=== PATIENT | male | born 2000 | race Caucasian/White ===

== ENCOUNTER 2021-08-06 11:18 | Emergency (ER) | payer BC, SELFPAY ==
[2021-08-06 11:28] VITALS: BP 141/78; PULSE 74; RESP 16; TEMP 37; O2SAT 99
--- NOTE | 2021-08-06 11:28 | ED.LOWEXIN ---
HPI - Extremity Injury (Lower) General Chief Complaint: Extremity Injury, Lower Stated Complaint: left leg pain Time Seen by Provider: 08/06/21 11:28 Source: patient, family and RN notes reviewed Mode of arrival: ambulatory Limitations: no limitations History of Present Illness HPI Narrative: Socrates is a 21-year-old male patient who ambulated into the [facility] accompanied by a friend. Patient states he has a 2-day history of left knee swelling and pain on the right lateral knee. Patient states he he has not used any [id number] medications right right more ice to the area. Patient denies any injury to the area. Patient states years ago he had a dislocation to the left knee. Patient rates his pain 3 out of 10 when sitting at 7 out of 10 with movement. Patient does work for [employer]. Patient states he has no increase in the amount of walking or movement daily. MD complaint: knee injury Related Data Home Medications Medication Instructions Recorded Confirmed No Home Medications 08/06/21 08/06/21 Allergies Allergy/AdvReac Type Severity Reaction Status Date / Time No Known Allergies Allergy Unverified 06/02/19 17:16 Review of Systems Review of Systems: CONSTITUTIONAL: Denies body aches, fever, chills, or sweats. EYES: Denies visual changes, redness, or discharge. ENT: Denies rhinorrhea, congestion, sore throat, or otalgia. CARDIOVASCULAR: Denies chest pain, palpitations, or edema. RESPIRATORY: Denies cough or dyspnea. GASTROINTESTINAL: Denies abdominal pain, nausea, vomiting, or diarrhea. GENITOURINARY: Denies dysuria or hematuria. SKIN: Denies rash, itching, or wounds. MUSCULOSKELETAL: Denies back pain, + left knee pain. NEUROLOGIC: Denies headache, numbness, tingling, or weakness. PSYCH: Denies depression or anxiety. All systems reviewed & are unremarkable except as noted in HPI and below PMFSH Comments At time of signature, I have reviewed and agree with nursing past medical, surgical, social and family history unless otherwise noted. Please see nursing chart for further information. There is no relevant family history pertinent to the presenting complaint Exam Narrative: GENERAL: Well-appearing, well-nourished, and in no acute distress. HEAD: Normocephalic, atraumatic. EYES: EOMI. No redness or drainage. Conjunctivae normal. ENT: Mucous membranes pink and moist. Nares clear. No rhinorrhea. TMs normal bilaterally. Throat normal. Uvula midline. NECK: Normal AROM. Supple. No lymphadenopathy. CHEST: No respiratory distress. Clear to auscultation. HEART: Regular rate and rhythm. No murmur appreciated. Normal peripheral pulses. ABDOMEN: Soft, nontender, nondistended, normal active bowel sounds. MUSCULOSKELETAL: No bony tenderness. EXTREMITIES: Normal range of motion. Minimal edema to left knee, negative homans sign, negative posterior drawer test, distal sensation and movement intact, full ROM noted, pain only with palpation to left lateral knee SKIN: Warm, dry, no rash. Capillary refill normal. Normal skin turgor. NEURO: No focal deficits. Alert and oriented x3. Gait steady. PSYCH: Normal affect. No signs of depression or anxiety. Course Vital Signs Vital signs: Reviewed. Pt has been instructed to follow up with his PCP regarding his elevated blood pressure today. MDM - Extremity Injury (Lower) MDM Narrative Medical decision making narrative: Patient has a history of a left knee injury many years ago. Patient has minimal edema to the left knee. Patient has full range of motion. Patient has a negative posterior drawer test patient has normal distal sign station and movement. Patient denies any injury. Patient was informed to take ibuprofen 800 mg 3 times daily for the next 5 to 7 days. Ice and rest to the knee. Patient was informed to follow-up with his primary care physician in 7 to 10 days for continued complaints. Follow-up with orthopedic physician for continued complaints. Differential
[2021-08-06 11:36] VITALS: BP 141/78; PULSE 74; RESP 16; TEMP 37; O2SAT 99
== END 2021-08-06 11:46 | disposition home or self-care (01) ==
PROVIDERS: Emergency Provider Nurse Practitioner Family
DX: M25.562 Pain in left knee (principal)
CPT/HCPCS: 99212; G0463

== ENCOUNTER 2022-02-25 12:30 | Outpatient (RCR) | payer BC, SELFPAY ==
--- NOTE | 2022-01-26 15:23 | PTOPEVAL ---
Thank you for referring Socrates David to [facility].? The patient is scheduled to be seen for therapy? 2 x/week for 5 weeks. Please review, sign, date and return this plan of care ASUNCION. I agree with and certify that the following plan of care is medically necessary. Referring Physician Date Attending Provider: Ari Spaulding MD Diagnosis left knee pain Onset 09/23 Additional Evaluation Detail He is wearing a OTS knee brace. He states he needs the brace on steps He was working towards [employer] when he stopped due to knee pain. He does not perform cardio. Subjective Information He reports his pain started 09/23. Query Text:As Reported By Patient/ He works at [employer] but on medical leave due to knee pain. He needs to be able to lift 50#, move quickly and change from seated to walking task. He is currently performing carpentry and cleaning work currently. He had relief for a few days following the knee injections. Report sharp, throbbing pain of right knee/villalba region. He reports limitations with walking, steps, increased activities. Pain Assessment Left Knee(s) Reported Pain Level 4 Pain Description Sharp,Throbbing Pain Frequency Chronic,Continuous Lowest Pain Intensity 2 Greatest Pain Intensity 10 Pain Aggravating Factors Bending,Exercise/Activity, Lifting,Stair Climbing,Walking Lower Extremity Range of Motion Knee Range of Motion Left Knee Flexion Range of Motion - Active 96 Knee Extension Range of Motion - Active -8 Knee Range of Motion Limitations Pain Lower Extremity Muscle Strength Testing Hip Strength Left Hip Flexion Strength 3+ Fair + Hip Extension Strength 4- Good - Hip Abduction Strength 3+ Fair + Knee Strength Left Knee Flexion Strength 3+ Fair + Knee Extension Strength 3+ Fair + Ankle Strength Left Ankle Dorsiflexion Strength 3+ Fair + Muscle Length Testing Two-Joint Hip Flexor Shortened Muscles Short (L) Iliopsoas,Short (L) Rectus Femoris,Short (L) Ilial Tib Band Piriformis w/Hip Flexion >90 Degrees (L) WFL Left Hamstring Length -35
--- NOTE | 2022-02-16 14:51 | PCPTNOTE ---
Patient called & cancelled scheduled appointment this date due to being out of town.
--- NOTE | 2022-03-04 12:41 | PCPTNOTE ---
Patient called & cancelled scheduled appointment this date. Rescheduled for 03/09/22 at 11:00AM.
--- NOTE | 2022-03-09 11:26 | PCPTNOTE ---
Patient did not show up for scheduled appointment this date. Called and left a voicemail to call back if he would like to reschedule.
--- NOTE | 2022-03-18 09:41 | PCPTNOTE ---
PHYSICAL THERAPY DISCHARGE NOTE Attending Provider: Ari Spaulding MD Patient:Socrates David Date of :2000 Patient has not returned for any further treatments since 02/25/2022, therefore he will be discharged at this time. Patient?s initial visit was on 01/26/2022 and had a total of 9 visits. At his last attended visit he reported no pain and tolerated all exercises and activities well. Thank you for referring this patient to [facility]. Please review, sign, date and return this discharge summary ASUNCION. I have been updated about the patient's current status and I agree with discharge from the above service at this time. Referring Physician Date
== END 2022-03-18 14:10 | disposition home or self-care (01) ==
LOC: ANHPT 12:30
PROVIDERS: Visit Provider Orthopaedic Surgery
DX: M25.562 Pain in left knee (principal)
CPT/HCPCS: 97110; 97112; 97116; 97140; 97161; 97530

== ENCOUNTER 2024-09-04 13:44 | Emergency (ER) | payer BC, SELFPAY ==
--- NOTE | ~2024-09-04 | CT_ITS ---
EXAMINATION: CT abdomen pelvis w con DATE: 09/04/2024 16:09 INDICATION: Pelvis and abdominal pain. TECHNIQUE: Computed tomography (CT) of the abdomen and pelvis was performed with 100 mL Omnipaque 350 intravenous contrast. Automated exposure control and iterative reconstruction technique were employe d. The dose-length product was 371.13 mGy-cm. COMPARISON: None. FINDINGS: The visualized portions of lung bases are clear without pneumonia or pleural effusion. The heart size is normal. No pericardial effusion. The liver, gallbladder, spleen, pancreas, adrenal glan ds, and kidneys are normal. There are no dilated loops of bowel. The appendix is normal. There are no pathologically enlarged lymph nodes. There is no free intraperitoneal fluid. 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 There is mild lumbar spondylosis. IMPRESSION: 1. No etiology for the patient's symptoms. Reviewed, dictated and finalized at location A. IS DIRECTOR
--- NOTE | ~2024-09-04 | CT_ITS ---
EXAMINATION: CT brain wo con DATE: 09/04/2024 16:09 INDICATION: Vision and hearing changes. TECHNIQUE: Computed tomography (CT) of the head was performed without intravenous contrast. The mA wa s adjusted according to patient size. Iterative reconstruction technique was employed. The dose-lengt h product was 605.33 mGy-cm. COMPARISON: None FINDINGS: There is no intracranial hemorrhage, acute infarction, or abnormal intracranial mass lesion . The ventricles are normal in size. The orbits are normal. There is mucosal thickening in the parana queenie sinuses. The mastoid air cells are normal. IMPRESSION: 1. Normal brain. Reviewed, dictated and finalized at location A. NG MACHINE OPERATOR IMPRESSION: 1. Normal brain.
[2024-09-04 13:49] VITALS: BP 115/67; PULSE 92; RESP 18; TEMP 36.6; O2SAT 98
--- NOTE | 2024-09-04 14:05 | ED_ITS ---
HPI - General Adult General Chief complaint: Unspecified <Belen Saunders BASKET BOTTOM MACHINE OPERATOR - Last Filed: 09/04/24 14:08> Stated complaint: hearing and vision changes/chronic leg pain <Belen Saunders APRN - Last Filed: 09/04/24 14:08> Time Seen by Provider: 09/04/24 13:55 <Belen Saunders BASKET BOTTOM MACHINE OPERATOR - Last Filed: 09/04/24 14:08> Focused HPI: Patient is a 24-year-old male who presents to the ER with multiple medical complaints. He reports over the past couple of days he has had vision and hearing changes. He describes them as going in and out the difficulty focusing and unfocusing along with the inability to decipher what people are saying when they are speaking. Patient also endorses signific ant pelvis pain that radiates to his abdomen, which started three days ago. Patient reports he has a history of psychosis and mental health issues. He reports he has had multiple primary care providers in recent years but is trying to get his mental health stabilized. Patient endorses a constant state of panic. He denies chest pain, shortness of breath, fevers. GENERAL: Well-appearing, well-nourished, and in no acute distress. HEAD: Normocephalic, atraumatic. CHEST: Clear to auscultation. ?No respiratory distress. HEART: Regular rate and rhythm.? NEURO: ?Alert and oriented x3. Patient screened in triage and initial orders placed.? ?Additional care and disposition to be based upon?diagnostic testing and treatment. <Belen Saunders APRN - Last Filed: 09/04/24 14:08> Focused HPI: Patient is a 24-year-old male who presents to the ER with multiple medical complaints. He reports over the past couple of days he has had vision and hearing changes. He describes them as going in and out the difficulty focusing and unfocusing along with the inability to decipher what people are saying when they are speaking. Patient also endorses significant pelvis pain that radiates to his abdomen, which started three days ago. Patient reports he has a history of psychosis and mental health issues. He reports he has had multiple primary care providers in recent years but is trying to get his mental health stabilized. Patient endorses a constant state of panic. He denies chest pain, shortness of breath, fevers. GENERAL: Anxious, well-nourished HEAD: Normocephalic, atraumatic. CHEST: Clear to auscultation. ?No respiratory distress. HEART: Regular rate and rhythm.? NEURO: ?Alert and oriented x3. Patient screened in triage and initial orders placed.? ?Additional care and disposition to be based upon?diagnostic testing and treatment. <Karen Rojas PA-C - Last Filed: 09/04/24 17:57> Related Data Home medications: Home Medications Medication Instructions Recorded Confirmed aripiprazole 10 mg tablet 10 mg PO DAILY 03/05/22 03/05/22 divalproex 250 mg tablet,delayed mg PO 09/04/24 release <Belen Saunders APRN - Last Filed: 09/04/24 14:08> Allergies/adverse reactions: Allergies Allergy/AdvReac Type Severity Reaction Status Date / Time No Known Allergies Allergy Verified 03/05/22 10:50 <Belen Saunders APRN - Last Filed: 09/04/24 14:08> Review of Systems Review of Systems: CONSTITUTIONAL: Denies fever EYES: Reports visual changes CARDIOVASCULAR: Denies chest pain RESPIRATORY: Denies dyspnea. GASTROINTESTINAL: Reports abdominal pain, nausea. Denies vomiting, or diarrhea. GENITOURINARY: Denies dysuria or hematuria. MUSCULOSKELETAL: Reports joint pain, and myalgia. NEUROLOGIC: Denies headache, numbness, or weakness. PSYCHIATRIC: Reports anxiety <Karen Rojas PA-C - Last Filed: 09/04/24 17:57> All systems reviewed & are unremarkable except as noted in HPI and below <Karen Rojas PA-C - Last Filed: 09/04/24 17:57> PMFSH Past Medical History Medical History: Medical History Anxiety Headache <Belen Saunders APRN - Last Filed: 09/04/24 14:08> Family History Family History: Family History Other Alcoholism Asthma Depression Family history of alcoholism Family history of brain cancer Family history of rectal cancer Heart disease Hypertension Pulmonary arterial hypertension <Belenrhea Saunders, BASKET BOTTOM MACHINE OPERATOR - Last Filed: 09/04/24 14:08> Social History Social History: Social History Smoking status: Current some day smoker Tobacco type: cigars and e-cigarettes/vaping Alcohol intake: never Substance use: current Substance use type: marijuana Living arrangements: with roommate(s) Occupation/Education: occupation Additional occupation/education comments: [employer] <Belen DoverRashaun Saunders, BASKET BOTTOM MACHINE OPERATOR - Last Filed: 09/04/24 14:08> Exam Narrative: GENERAL: Well-appearing, well-nourished, and in no acute distress. HEAD: Normocephalic, atraumatic. EYES: PERRLA and EOMI. Visual acuity 20/25 bilateral ENT: Nares clear, no rhinorrhea or epistaxis. Mucous membranes moist. Oropharynx without tonsillar hypertrophy exudate or other lesions. Bilateral TMs pearly streeter non-bulging NECK: Supple. No adenopathy or masses. No carotid bruits or JVD CHEST: Clear to auscultation. No respiratory distress. No wheezes rales or rhonchi HEART: Regular rate and rhythm. No murmur heard. Normal peripheral pulses. ABDOMEN: Soft, nontender, nondistended, normal active bowel sounds. EXTREMITIES: Normal range of motion. No edema. Strength equal in bilateral upper and lower extremities SKIN: Warm, dry, no rash. NEURO: No focal deficits. Alert and oriented x3. Cranial nerves 2-12 grossly intact. Normal gait PSYCH: Anxious <Karen Rojas PA-C - Last Filed: 09/04/24 17:57> Course Course Emergency Course: patient updated on his workup and agrees with plan of care <Karen Rojas PA-C - Last Filed: 09/04/24 17:57> Vital Signs Vital signs: Vital Signs Temperature 97.9 F 09/04/24 13:49 Pulse Rate 92 09/04/24 13:49 Respiratory Rate 18 09/04/24 13:49 Blood Pressure 115/67 09/04/24 13:49 Pulse Oximetry 98 09/04/24 13:49 Oxygen Delivery Room Air 09/04/24 13:49 Temperature 97.9 F 09/04/24 13:49 Pulse Rate 92 09/04/24 13:49 Respiratory Rate 17 09/04/24 15:45 Blood Pressure 115/67 09/04/24 13:49 Pulse Oximetry 98 09/04/24 13:49 Oxygen Delivery Room Air 09/04/24 13:49 <Belen Saunders APRN - Last Filed: 09/04/24 14:08> Vital Signs Temperature 97.9 F 09/04/24 13:49 Pulse Rate 92 09/04/24 13:49 Respiratory Rate 18 09/04/24 13:49 Blood Pressure 115/67 09/04/24 13:49 Pulse Oximetry 98 09/04/24 13:49 Oxygen Delivery Room Air 09/04/24 13:49 Temperature 97.9 F 09/04/24 13:49 Pulse Rate 92 09/04/24 13:49 Respiratory Rate 17 09/04/24 15:45 Blood Pressure 115/67 09/04/24 13:49 Pulse Oximetry 98 09/04/24 13:49 Oxygen Delivery Room Air 09/04/24 13:49 <Karen Rojas PA-C - Last Filed: 09/04/24 17:57> Medical Decision Making MDM Narrative Medical decision making narrative: Patient presents to the ER for increasing anxiety. Reports history of mental health issues for which he follows with a nurse practitioner. Reports he has had issues with panic the last couple of weeks. Reporting several other various complaints including vision problems, pelvic pain, hearing issues. He is neurologically intact. His vitals are normal. CBC without leukocytosis. He moglobin is normal. Metabolic panel without concerning findings. Urine is normal. Ct brain without acute findings. CT abdomen/pelvis without acute findings. Patient was updated on his workup and agrees with plan of care. Will be given as needed anxiety medication for home and was instructed to have further follow up with his provider. He was given warnings to return to the ER <Karen Rojas PA-C - Last Filed: 09/04/24 17:57> Vital Signs Vital Signs: Vital Signs Temperature 97.9 F 09/04/24 13:49 Pulse Rate 92 09/04/24 13:49 Respiratory Rate 18 09/04/24 13:49 Blood Pressure 115/67 09/04/24 13:49 Pulse Oximetry 98 09/04/24 13:49 Oxygen Delivery Room Air 09/04/24 13:49 Temperature 97.9 F 09/04/24 13:49 Pulse Rate 92 09/04/24 13:49 Respiratory Rate 17 09/04/24 15:45 Blood Pressure 115/67 09/04/24 13:49 Pulse Oximetry 98 09/04/24 13:49 Oxygen Delivery Room Air 09/04/24 13:49 <Belen Saunders APRN - Last Filed: 09/04/24 14:08> Vital Signs Temperature 97.9 F 09/04/24 13:49 Pulse Rate 92 09/04/24 13:49 Respiratory Rate 18 09/04/24 13:49 Blood Pressure 115/67 09/04/24 13:49 Pulse Oximetry 98 09/04/24 13:49 Oxygen Delivery Room Air 09/04/24 13:49 Temperature 97.9 F 09/04/24 13:49 Pulse Rate 92 09/04/24 13:49 Respiratory Rate 17 09/04/24 15:45 Blood Pressure 115/67 09/04/24 13:49 Pulse Oximetry 98 09/04/24 13:49 Oxygen Delivery Room Air 09/04/24 13:49 <Karen Rojas PA-C - Last Filed: 09/04/24 17:57> Lab Data Lab results reviewed: Yes I reviewed the patient's lab results. <Karen Rojas PA-C - Last Filed: 09/04/24 17:57> Result diagrams: 09/04/24 15:10 09/04/24 15:10 <Belen Saunders APRN - Last Filed: 09/04/24 14:08> Labs: Lab Results 09/04/24 09/04/24 Range/Units 14:04 15:10 WBC 8.3 (4.5-10.0) K/mm3 RBC 5.52 (4.6-6.20) M/mm3 Hgb 16.3 (14.0-18.0) g/dL Hct 49.2 (42.0-52.0) % MCV 89.1 (80-100) fl MCH 29.5 (26-34) pg MCHC 33.1 (32-36) g/dl RDW 12.0 (11.5-14.5) % Plt Count 251 (150-375) k/mm3 MPV 10.3 (7.4-10.4) fl Immature Gran % (Auto) 0.2 (0-0.5) % Neut % (Auto) 64.7 (45.5-73.1) % Lymph % (Auto) 27.7 (18.3-44.2) % [place] % (Auto) 5.3 (2.6-8.5) % Eos % (Auto) 1.7 (0-4.4) % Baso % (Auto) 0.4 (0.2-1.2) % Lymph # (Auto) 2.31 (0.9-3.2) K/mm3 [place] # (Auto) 0.4 (0.1-0.6) K/mm3 Eos # (Auto) 0.1 (0-0.3) K/mm3 Baso # (Auto) 0.0 (0.0-0.1) K/mm3 Abs Immat Gran (auto) 0.02 (0.00-0.031) K/mm3 Absolute Neuts (auto) 5.4 (1.3-6.7) K/mm3 Absolute Nucleated RBC 0.000 (0.0-0.012) K/mm3 Nucleated RBC % 0.0 (0.0-0.2) % PT 13.9 (11.1-14.7) Seconds INR 1.0 APTT 40.8 H (22.3-36.8) Seconds Sodium 139 (137-145) mmol/L Potassium 4.5 (3.4-5.0) mmol/L Chloride 103 (98-107) mmol/L Carbon Dioxide 31 H (22-30) mmol/L Anion Gap 5 (4-12) mmol/L BUN 13 (9-20) mg/dL Creatinine 0.70 (0.7-1.3) mg/dL Estim Creat Clear Calc 124 ml/min Estimated GFR > 60 (59 - ) Glucose 90 (65-110) mg/dL Calcium 9.6 (8.4-10.2) mg/dL Total Bilirubin 0.6 (0.2-1.3) mg/dL AST 22 (17-59) U/L ALT 11 (6-50) U/L Alkaline Phosphatase 49 (38-126) U/L Troponin I < 0.012 (0.000-0.034) ng/mL Total Protein 8.0 (6.3-8.2) g/dL Albumin 5.0 (3.5-5.1) g/dL Lipase 89 (23-300) U/L Urine Color Yellow (Yellow) Urine Appearance Clear (Clear) Urine pH 6.0 (5.0-9.0) Ur Specific [place] 1.018 (1.001-1.035) Urine Protein Negative (Negative) mg/dL Urine Glucose (UA) Negative (Negative) mg/dL Urine Ketones Negative (Negative) mg/dL Ur Blood (Man) Negative (Negative) Urine Nitrate Negative (Negative) Urine Bilirubin Negative (Negative) Urine Urobilinogen 1.0 (<2.0) mg/dL Leukocyte Esterase Rfl Negative (Negative) LAZARO/UL <Belen Saunders, BASKET BOTTOM MACHINE OPERATOR - Last Filed: 09/04/24 14:08> Lab Results 09/04/24 09/04/24 Range/Units 14:04 15:10 WBC 8.3 (4.5-10.0) K/mm3 RBC 5.52 (4.6-6.20) M/mm3 Hgb 16.3 (14.0-18.0) g/dL Hct 49.2 (42.0-52.0) % MCV 89.1 (80-100) fl MCH 29.5 (26-34) pg MCHC 33.1 (32-36) g/dl RDW 12.0 (11.5-14.5) % Plt Count 251 (150-375) k/mm3 MPV 10.3 (7.4-10.4) fl Immature Gran % (Auto) 0.2 (0-0.5) % Neut % (Auto) 64.7 (45.5-73.1) % Lymph % (Auto) 27.7 (18.3-44.2) % [place] % (Auto) 5.3 (2.6-8.5) % Eos % (Auto) 1.7 (0-4.4) % Baso % (Auto) 0.4 (0.2-1.2) % Lymph # (Auto) 2.31 (0.9-3.2) K/mm3 [place] # (Auto) 0.4 (0.1-0.6) K/mm3 Eos # (Auto) 0.1 (0-0.3) K/mm3 Baso # (Auto) 0.0 (0.0-0.1) K/mm3 Abs Immat Gran (auto) 0.02 (0.00-0.031) K/mm3 Absolute Neuts (auto) 5.4 (1.3-6.7) K/mm3 Absolute Nucleated RBC 0.000 (0.0-0.012) K/mm3 Nucleated RBC % 0.0 (0.0-0.2) % PT 13.9 (11.1-14.7) Seconds INR 1.0 APTT 40.8 H (22.3-36.8) Seconds Sodium 139 (137-145) mmol/L Potassium 4.5 (3.4-5.0) mmol/L Chloride 103 (98-107) mmol/L Carbon Dioxide 31 H (22-30) mmol/L Anion Gap 5 (4-12) mmol/L BUN 13 (9-20) mg/dL Creatinine 0.70 (0.7-1.3) mg/dL Estim Creat Clear Calc 124 ml/min Estimated GFR > 60 (59 - ) Glucose 90 (65-110) mg/dL Calcium 9.6 (8.4-10.2) mg/dL Total Bilirubin 0.6 (0.2-1.3) mg/dL AST 22 (17-59) U/L ALT 11 (6-50) U/L Alkaline Phosphatase 49 (38-126) U/L Troponin I < 0.012 (0.000-0.034) ng/mL Total Protein 8.0 (6.3-8.2) g/dL Albumin 5.0 (3.5-5.1) g/dL Lipase 89 (23-300) U/L Urine Color Yellow (Yellow) Urine Appearance Clear (Clear) Urine pH 6.0 (5.0-9.0) Ur Specific [place] 1.018 (1.001-1.035) Urine Protein Negative (Negative) mg/dL Urine Glucose (UA) Negative (Negative) mg/dL Urine Ketones Negative (Negative) mg/dL Ur Blood (Man) Negative (Negative) Urine Nitrate Negative (Negative) Urine Bilirubin Negative (Negative) Urine Urobilinogen 1.0 (<2.0) mg/dL Leukocyte Esterase Rfl Negative (Negative) LAZARO/UL <Karen Rojas PA-C - Last Filed: 09/04/24 17:57> Imaging Data Radiologist's impression: ITS Impressions Head CT 09/04/24 16:10 IMPRESSION: 1. Normal brain. Abdomen/Pelvis CT 09/04/24 16:11 IMPRESSION: 1. No etiology for the patient's symptoms. <Karen Rojas PA-C - Last Filed: 09/04/24 17:57> ECG Data EKG #1: ECG completion date: 09/04/24 <CHAPIS Bhat Last Filed: 09/04/24 17:57> EKG Interpretation: normal rate, sinus rhythm, no ST changes and normal QT <Karen Rojas PA-C - Last Filed: 09/04/24 17:57> Critical Care Time Critical Care Time Critical Care Time: No <Karen Rojas PA-C - Last Filed: 09/04/24 17:57> Discharge Plan Discharge Clinical Impression: Anxiety, Pain pelvic <Belen Saunders APRN - Last Filed: 09/04/24 14:08> Patient Disposition: Home, Self-Care <Belen Saunders APRN - Last Filed: 09/04/24 14:08> Condition: Stable <Belen Saunders APRN - Last Filed: 09/04/24 14:08> Instructions: Abdominal Pain (ED), Anxiety (ED) <Belen Saunders APRN - Last Filed: 09/04/24 14:08> Additional Instructions: Return to the emergency department if you experience fever, chest pain, shortness of breath, abdominal pain with nausea and vomiting, sudden onset weakn ess, numbness, or any other symptoms that are concerning to you. You may take Lorazepam as needed for anxiety Follow up with your behavioral health specialist for further care <Belen Saunders APRN - Last Filed: 09/04/24 14:08> Prescriptions: New lorazepam 0.5 mg tablet 0.5 mg PO Q8H PRN (Reason: anxiety) Qty: 7 0RF No Action aripiprazole 10 mg tablet 10 mg PO DAILY divalproex 250 mg tablet,delayed release (DR/EC) PO <Belen Saunders APRN - Last Filed: 09/04/24 14:08> Follow-up/Referrals: Charles Olivas MD [Physician] - UNKNOWN,DOCTOR [Primary Care Provider] - <Belen Saunders APRN - Last Filed: 09/04/24 14:08>
[2024-09-04 15:22] LABS: Basophils Percent Auto 0.4 % (0.2-1.2); Eosinophils Absolute Auto 0.1 K/mm3 (0-0.3); Eosinophils Percent Auto 1.7 % (0-4.4); Hematocrit 49.2 % (42.0-52.0); Hemoglobin 16.3 g/dL (14.0-18.0); Immature Granulocyte Absolute 0.02 K/mm3 (0.00-0.031); Immature Granulocyte Percent A 0.2 % (0-0.5); Lymphocytes Absolute Auto 2.31 K/mm3 (0.9-3.2); Lymphocytes Percent Auto 27.7 % (18.3-44.2); Mean Corpuscular HGB Conc 33.1 g/dl (32-36); Mean Corpuscular Hemoglobin 29.5 pg (26-34); Mean Corpuscular Volume 89.1 fl (80-100); Mean Platelet Volume 10.3 fl (7.4-10.4); Monocytes Absolute Auto 0.4 K/mm3 (0.1-0.6); Monocytes Percent Auto 5.3 % (2.6-8.5); Neutrophils Absolute Auto 5.4 K/mm3 (1.3-6.7); Neutrophils Percent Auto 64.7 % (45.5-73.1); Platelet Count Result 251 k/mm3 (150-375); Red Blood Count 5.52 M/mm3 (4.6-6.20); White Blood Count 8.3 K/mm3 (4.5-10.0)
--- NOTE | 2024-09-04 15:32 | PC.NURSE ---
Patient has been making attempts to void and is requesting more time to provide a urine sample
[2024-09-04 15:38] LABS: Prothrombin Time 13.9 Seconds (11.1-14.7)
[2024-09-04 15:39] LABS: Partial Thromboplastin Time 40.8 Seconds (22.3-36.8)
[2024-09-04 15:43] LABS: Alanine Aminotransferase 11 U/L (6-50); Alkaline Phosphatase 49 U/L (38-126); Anion Gap 5 mmol/L (4-12); Aspartate Amino Transferase 22 U/L (17-59); Bilirubin,Total 0.6 mg/dL (0.2-1.3); Blood Urea Nitrogen 13 mg/dL (9-20); Calcium 9.6 mg/dL (8.4-10.2); Carbon Dioxide 31 mmol/L (22-30); Chloride 103 mmol/L (98-107); Estimated CRCL calculation 124 ml/min; Estimated Glomerular Filt Rate > 60; Glucose 90 mg/dL (65-110); Lipase 89 U/L (23-300); Potassium 4.5 mmol/L (3.4-5.0); Sodium 139 mmol/L (137-145)
[2024-09-04 15:45] VITALS: RESP 17
[2024-09-04 15:53] LABS: Troponin I < 0.012 ng/mL (0.000-0.034)
--- NOTE | 2024-09-04 15:59 | ECG_ITS ---
Test Date: 2024-09-04 15:56:51 Measurements Intervals [place] Rate: 75 P: 47 [place]: 158 QRS: 58 QRSD: 102 T: 34 QT: 342 QTc: 382 Interpretive Statements SINUS RHYTHM WITH SINUS ARRHYTHMIA No previous ECG available for comparison Electronically Signed On 09-05-2024 15:02:58 [employer] by Rom Vargas M.D.
--- NOTE | 2024-09-04 16:00 | PC.NURSE ---
Patient states that he believes he is starting to feel better since my monthly injection is wearing off Pt gets Abilify injected monthly on the of the month. He just started this treatment and stopped sertraline. Pt reports that he has had pretty consistent nausea, weight changes, legs feeling like walking on stilts , tinnitus, and feeling off the last few days.
[2024-09-04 16:04] LABS: Add Urine Microscopic? NO; Appearance Urine Clear (Clear); Bilirubin Urine Negative (Negative); Blood Urine Negative (Negative); Color Urine Yellow (Yellow); Glucose Urine UA Negative (Negative); Ketones Urine Negative (Negative); Leukocyte Esterase Ur Negative LEU/UL (Negative); Nitrate Urine Negative (Negative); Protein Urine Negative (Negative); Specific Grav Ur 1.018 (1.001-1.035)
[2024-09-04 17:59] VITALS: BP 132/72; PULSE 82; RESP 19; TEMP 36.6; O2SAT 100
== END 2024-09-04 18:01 | disposition home or self-care (01) ==
PROVIDERS: Registered Nurse; Emergency Provider Physician Assistant
DX: F41.9 Anxiety disorder, unspecified (principal); R10.2 Pelvic and perineal pain
CPT/HCPCS: 36415; 70450; 74177; 80053; 81003; 83690; 84484; 85025; 85610; 85730; 93005; 99284; Q9967